=== PATIENT | female | born 1955 | race Caucasian/White ===

== ENCOUNTER 2018-08-30 19:49 | Observation (INO) | payer OTHER ==
--- NOTE | 2018-08-30 20:45 | RAD ---
EXAM: Portable chest PROVIDED CLINICAL HISTORY: Shoulder tightness, throat tightness, anxiety COMPARISON: None FINDINGS: Cardiac and mediastinal silhouette is within normal limits. No focal consolidation, pleural fluid or pneumothorax evident. IMPRESSION: No evidence for an acute cardiopulmonary process.
[2018-08-30] MEDS ORDERED: Ketorolac Tromethamine 30 MG/ML VIAL ONE (20:52)
[2018-08-30 21:16] LABS: #Basophils 0.1 thou/uL (0.0-0.2); #Eosinphils 0.1 thou/uL (0.0-0.7); #Lymphocytes 2.9 thou/uL (1.20-3.40); #Neutrophils 8.7 thou/uL (1.40-6.50); %Basophils 0.6 % (0.0-1.0); %Lymphocytes 22.8 % (21.0-51.0); %Monocytes 7.5 % (0.0-10.0); %Neutrophils 68.1 % (42.0-75.0); Hemoglobin 13.4 g/dL (12.0-16.0); Mean Corpuscular Hemoglobin 28.8 pg (27.0-31.0); Mean Corpuscular Volume 90.1 fL (78.0-98.0); Mean Platelet Volume 6.9 fL (7.4-10.4); Platelet Count 334 thou/uL (130-400); RBC Distribution Width 13.5 % (11.5-14.5); Red Blood Cell (RBC) Count 4.65 mill/uL (4.20-5.40); White Blood Cell (WBC) Count 12.7 thou/uL (4.8-10.8)
[2018-08-30 21:36] LABS: ALT (SGPT) 21 U/L (8-55); AST (SGOT) 18 U/L (5-34); Albumin 4.2 g/dL (3.4-4.8); Alkaline Phosphatase 79 U/L (40-150); Anion Gap 14 mmol/L (10-20); BUN (Urea Nitrogen) 13 mg/dL (9.8-20.1); Bilirubin, Total 0.4 mg/dL (0.2-1.2); Calc. Creatinine Clearance 0 mL/min (70-130); Calcium 9.6 mg/dL (7.8-10.44); Carbon Dioxide 27 mmol/L (23-31); Chloride 103 mmol/L (98-107); Estimated GFR-MDRD Greater than 90; Globulin 3.1 g/dL (2.4-3.5); Glucose 106 mg/dL (80-115); Potassium 4.5 mmol/L (3.5-5.1); Protein, Total 7.3 g/dL (6.0-8.3); Sodium 139 mmol/L (136-145)
[2018-08-30] MEDS ORDERED: Aspirin Chewable 81 MG TAB ONE (22:37)
[2018-08-31] MEDS ORDERED: Ondansetron PF 4 MG/2 ML Vial IVP PRN (00:35)
[2018-08-31] MEDS ORDERED: Acetaminophen 325 MG TAB PO PRN (00:35)
[2018-08-31] MEDS ORDERED: Ondansetron ODT 4 MG TAB SL PRN (00:35)
[2018-08-31] MEDS ORDERED: Sodium Chloride 0.9% 1,000 ML IV SCH (00:35)
[2018-08-31 01:17] LABS: Troponin I Less than 0.010 ng/mL (< 0.028)
[2018-08-31 01:22] VITALS: BMI 41.1
[2018-08-31 04:23] LABS: Troponin I Less than 0.010 ng/mL (< 0.028)
[2018-08-31] MEDS ORDERED: Aspirin Chewable 81 MG TAB PO SCH (09:00)
[2018-08-31] MEDS ORDERED: Enoxaparin Sodium 40 MG/0.4 ML SYRINGE SC SCH (09:00)
--- NOTE | 2018-08-31 10:47 | HP ---
CHIEF COMPLAINT: Throat tightness and chest pain. HISTORY OF PRESENT ILLNESS: The patient is a 63-year-old female, who started having some throat tightness a couple of days ago. This went away without any medical intervention and she started having similar episodes yesterday associated with some chest tightness mostly on both shoulders. No nausea. No vomiting. No clammy skin. No shortness of breath. She came to the emergency room, got treated with Ketoralac injection and the pain went away. She had similar episode long time ago. She had a stress test about 20 years ago. Her primary care physician, Dr. Ness. Surrogate decision maker, the patient's , Bob Méndez. She does not complain of any chest pain right now during my visits. No shortness of breath. PAST MEDICAL HISTORY: Positive for anxiety. PAST SURGICAL HISTORY: 1. Bilateral knee replacement. 2. Hysterectomy. 3. Cholecystectomy. SOCIAL HISTORY: She denies any alcohol use, cigarette smoking, or use any illicit drugs. FAMILY HISTORY: Both parents are alive, they are in their 80s and they are healthy and they did not have medical issues. ALLERGIES: NONE. CURRENT MEDICATIONS: None. REVIEW OF SYSTEMS: All systems were reviewed and they are negative except for symptoms mentioned in the HPI. PHYSICAL EXAMINATION: VITAL SIGNS: Blood pressure is 138/74, pulse is 96, temperature is 98.5, respiratory rate is 18, and O2 saturation is 94. HEENT: Head is atraumatic and normocephalic. Eyes are PERRLA. Sclerae are nonicteric. Oral mucosa is moist. NECK: Supple. LUNGS: Clear. HEART: S1 and S2 normal. No S3. No S4. No any murmur. ABDOMEN: Soft and nontender. Bowel sounds are present. No organomegaly. EXTREMITIES: No clubbing, cyanosis, or edema. NEUROLOGICAL: She follows my commands. She moves her all 4 extremities. There are no any motor or sensory deficits. SKIN: No rash or erythema. LABORATORY DATA: White count of 12.7, hemoglobin is 13.4, hematocrit 41.9, and platelet count is 334. D-dimer is less than 0.27. Normal chemistry. Normal two measurements of troponin I. Electrocardiogram personally reviewed by me showed normal sinus rhythm. No ischemic changes. Tachycardic at 107 beats per minute. No ectopics. Possible enlargement of the left atrium. IMPRESSION: 1. Chest pain along with throat tightness, rule out acute coronary syndrome. She had 2 sets of troponins negative. We will get radionuclides scan on her. 2. Chronic sinus problem. The patient is on Flonase and azelastine at home. 3. Obesity, BMI of 41.2. PLAN: Plan is admission to telemetry for observation. Condition is fair. Activity is bedrest and bathroom privileges. IV Hep-Lock. She receives aspirin 324 mg in the emergency room, and we will do the DVT prophylaxis with SCDs and Lovenox and if the stress test is negative, we will send her home today. Job ID: [id number]
--- NOTE | 2018-08-31 14:15 | NM ---
Stress only myocardial perfusion scan: 08/31/2018 HISTORY: 63-year-old female with chest pain TECHNIQUE: SPECT imaging of the left ventricular myocardium was obtained during stress following the intravenous administration of 29.7 mCi technetium 99m labeled sestamibi. FINDINGS: No perfusion defect is noted on the SPECT imaging of the left ventricular myocardium. Left ventricular wall motion appears normal. Ejection fraction is estimated at 68%. EDV is 80 mL and ESV is 25 mL. IMPRESSION: Unremarkable stress only myocardial perfusion scan.
[2018-08-31 14:43] VITALS: BP 142/79; TEMP 98.4
--- NOTE | 2018-09-01 08:43 | DIS ---
DATE OF ADMISSION: 08/30/2018 DATE OF DISCHARGE: 08/31/2018 FINAL DIAGNOSES: 1. Chest pain. Acute coronary syndrome was ruled out with troponin I levels, which came back within normal limits and radionuclide scan, which came back within normal limits and electrocardiogram, which did not show any ischemic changes. 2. Chronic sinus problem. 3. Obesity with BMI of 41.2. HOSPITAL COURSE: The patient is a 63-year-old female, who started having some throat tightness for couple of days associated with some chest discomfort, mainly in both shoulders areas. No nausea, no vomiting, no clammy skin, and no shortness of breath were associated with it. She came to the emergency room. She was given IV injection of ketorolac and the chest pain went away. She was admitted to the hospital for further evaluation of her problem. At the time of admission, her white count was 12.7, hemoglobin was 13.4, hematocrit 41.9, and platelet count was 334. D-dimer is 0.27. Chemistry was normal and troponin I was normal. Electrocardiogram showed normal sinus rhythm, no ischemic changes with some tachycardia, which was 107 beats per minute. No ectopics. Possible enlargement of the left atrium. The patient got admitted to the hospital after she received aspirin in the emergency room. She underwent a radionuclide stress test, which came back without any ischemia. LVEF was estimated at 68%. She is doing well. She does not have much complaints to offer. Her vitals show blood pressure is 142/79, pulse is 91, respirations 18, O2 saturation is 98% on room air, and her temperature is 98.4. The patient is discharged in good condition. Disposition is home. Condition is good. The patient is seen and examined before she is discharged. At the time of discharge, recommended activity as tolerated. Diet, regular. MEDICATIONS: To take at home; 1. Multivitamin one tablet once a day. 2. Vitamin D3 of 2000 units once a day. 3. Claritin 10 mg once a day. 4. Azelastine 2 sprays to each nostril twice a day. 5. Flonase 2 sprays to each nostril twice a day. FOLLOWUP: She is going to follow up with her primary care physician, Dr. Ness in 1 week. TIME SPENT: Time spent on this discharge is less than 30 minutes. Job ID: [id number]
--- NOTE | 2018-09-04 13:59 | EKG ---
Test Reason : Blood Pressure : / mmHG Vent. Rate : 107 BPM Atrial Rate : 107 BPM P-R Int : 142 ms QRS Dur : 080 ms QT Int : 348 ms P-R-T Axes : 033 000 009 degrees QTc Int : 464 ms Sinus tachycardia Possible Left atrial enlargement Left ventricular hypertrophy Abnormal ECG Confirmed by DEVORA METZGER M.D. ([id number]), features editor BRIDGET SILVA ([id number]) on 09/04/2018 1:58:50 PM Referred By: Confirmed By:DEVORA METZGER M.D.
== END 2018-08-31 18:54 | disposition home or self-care (01) ==
LOC: ERS 19:49 → 2NO 23:54
PROVIDERS: ADMIT Family Medicine; ATTEND Family Medicine
DX: R07.89 Other chest pain (principal); J34.89 Other specified disorders of nose and nasal sinuses; E66.9 Obesity, unspecified; F41.9 Anxiety disorder, unspecified; R00.0 Tachycardia, unspecified; Z68.41 Body mass index [BMI] 40.0-44.9, adult; Z79.51 Long term (current) use of inhaled steroids; Z79.899 Other long term (current) drug therapy
CPT/HCPCS: 36415; 71045; 78452; 80053; 84484; 85025; 85379; 93005; 93017; 96361; 96372; 96374; A9500; G0378; J0153; J1650; J1885

== ENCOUNTER 2018-09-22 10:52 | Outpatient (CLI) | payer OTHER ==
--- NOTE | 2018-09-22 14:47 | BD ---
BONE DENSITOMETRY: Date: 09/22/18 HISTORY: Postmenopausal osteoporosis screening. FINDINGS: Lumbar Spine: BMD (g/cm2) L1 0.884 T-Score: -1.0 L2 0.898 T-Score: -1.2 L3 0.915 T-Score: -1.5 L4 0.972 T-Score: -0.8 Total 0.921 T-Score: -1.1 Left Femoral Neck: 0.685 T-Score: -1.5 Total Femur: 0.988 T-Score: 0.4 IMPRESSION: Bone mineral density of the lumbar spine and femoral neck both indicate osteopenia. 10 YEAR FRACTURE RISK: Major osteoporotic fracture: 7.3% Hip fracture: 0.6% POS: TPC
--- NOTE | 2018-10-21 08:04 | MMO ---
Bilateral MAMMO Bilat Screen [facility]. CLINICAL HISTORY: Patient is 63 years old and is seen for screening. The patient has the following family history of breast cancer: sister. The patient has no personal history of cancer. VIEWS: The views performed were: bilateral craniocaudal with tomosynthesis and bilateral mediolateral oblique with tomosynthesis. FILMS COMPARED: The present examination has been compared to prior imaging studies performed at [facility] [place]29[place] and 01/27/2018. MAMMOGRAM FINDINGS: There are scattered fibroglandular densities. There are stable benign appearing calcifications seen in the right breast. There are no suspicious masses, suspicious calcifications, or new areas of architectural distortion. IMPRESSION: THERE IS NO MAMMOGRAPHIC EVIDENCE OF MALIGNANCY. A ROUTINE FOLLOW-UP MAMMOGRAM IN 1 YEAR IS RECOMMENDED. THE RESULTS OF THIS EXAM WERE SENT TO THE PATIENT. ACR BI-RADS Category 2 - Benign finding MAMMOGRAPHY NOTE: 1. A negative mammogram report should not delay a biopsy if a dominant of clinically suspicious mass is present. 2. Approximately 10% to 15% of breast cancers are not detected by mammography. 3. Adenosis and dense breasts may obscure an underlying neoplasm. Reported by: ARNALDO BECKHAM MD Electonically Signed: [id number]
== END 2018-09-22 10:53 | disposition home or self-care (01) ==
LOC: BICMAMMO 10:52
PROVIDERS: ATTEND Family Medicine
DX: Z12.31 Encounter for screening mammogram for malignant neoplasm of breast (principal); Z13.820 Encounter for screening for osteoporosis; E55.9 Vitamin D deficiency, unspecified; M85.89 Other specified disorders of bone density and structure, multiple sites; Z80.3 Family history of malignant neoplasm of breast
CPT/HCPCS: 77063; 77067; 77080

== ENCOUNTER 2021-09-16 07:31 | Outpatient (CLI) | payer MEDICARE | END 2021-09-16 07:32 | disposition home or self-care (01) | LOC: SCSMRI 07:31 | PROVIDERS: ATTEND Family Medicine | DX: M47.26 Other spondylosis with radiculopathy, lumbar region (principal); M51.16 Intervertebral disc disorders with radiculopathy, lumbar region; M47.27 Other spondylosis with radiculopathy, lumbosacral region | CPT/HCPCS: 72148 ==

== ENCOUNTER 2021-09-18 09:32 | Outpatient (CLI) | payer MEDICARE | END 2021-09-18 09:33 | disposition home or self-care (01) | LOC: SCSRAD 09:32 | PROVIDERS: ATTEND Family Medicine | DX: M43.16 Spondylolisthesis, lumbar region (principal); M47.816 Spondylosis without myelopathy or radiculopathy, lumbar region | CPT/HCPCS: 72110 ==

== ENCOUNTER 2022-01-14 13:28 | Outpatient (CLI) | payer MEDICARE | END 2022-01-14 13:29 | disposition home or self-care (01) | LOC: SCSRAD 13:28 | PROVIDERS: ATTEND Family Medicine | DX: M25.552 Pain in left hip (principal); G89.4 Chronic pain syndrome; M16.12 Unilateral primary osteoarthritis, left hip ==